=== PATIENT | male | born 1950 | race African-American/Black ===

== ENCOUNTER → 2018-02-09 | Emergency (ER) | payer OTHER ==
[~2018-02-09] VITALS: Ht 175.3 cm; Wt 90.7 kg
[~2018-02-09] MED LIST: DILTIAZEM ER90 MG PO; HYDROCHLOROTHIA25 MG PO; LIPITOR20 MG PO
== END | disposition home or self-care (01) ==
LOC: ER 10:59 → CPU-OBS 11:23
DX: R07.89 Other chest pain (principal); B34.9 Viral infection, unspecified
CPT/HCPCS: 36415; 71046; 93005; 96365; G0378; G0379; J1885

== ENCOUNTER 2018-08-22 09:30 | Outpatient (CLI) | payer OTHER ==
[~2018-08-22] VITALS: Ht 175.3 cm; Wt 91.2 kg
== END 2018-08-22 09:50 | disposition home or self-care (01) ==
LOC: OFIC 805 09:30
DX: R13.19 Other dysphagia (principal); K21.0 Gastro-esophageal reflux disease with esophagitis

== ENCOUNTER 2018-10-27 06:54 | Emergency (ER) | payer OTHER ==
[~2018-10-27] VITALS: Ht 175.3 cm; Wt 92.5 kg
== END 2018-10-27 11:28 | disposition home or self-care (01) ==
LOC: ER 06:54
DX: M79.672 Pain in left foot (principal); S92.512S Displaced fracture of proximal phalanx of left lesser toe(s), sequela; W22.8XXS Striking against or struck by other objects, sequela

== ENCOUNTER 2021-10-06 10:17 | Outpatient (CLI) | payer OTHER | END 2021-10-06 10:20 | disposition home or self-care (01) | LOC: RX STUDY 10:17 | DX: R13.19 Other dysphagia (principal); R13.12 Dysphagia, oropharyngeal phase ==

== ENCOUNTER 2022-05-08 05:13 | Emergency (ER) | payer OTHER ==
[~2022-05-08] VITALS: Ht 175.3 cm; Wt 94.3 kg
[2022-05-08] MEDS ORDERED: TOPROL XL50 M1 PO (05:36)
[2022-05-08] MEDS ORDERED: GLUMETZA500 MG PO (05:37)
== END 2022-05-08 08:26 ==
LOC: ER 05:13
DX: U07.1 COVID-19 (principal); E11.9 Type 2 diabetes mellitus without complications; Z79.84 Long term (current) use of oral hypoglycemic drugs; I10 Essential (primary) hypertension

== ENCOUNTER 2024-05-13 12:48 | Inpatient (IN) | payer OTHER ==
[~2024-05-13] VITALS: Ht 175.3 cm; Wt 89.8 kg
[~2024-05-13 12:48] MED LIST changes: +GLUMETZA500 MG PO; +TOPROL XL50 M1 PO
[2024-05-13] MEDS ORDERED: COZAAR50 MG PO (13:31)
[2024-05-13] MEDS ORDERED: CRESTOR40 MG PO (13:31)
--- NOTE | 2024-05-13 13:52 | NUR ---
PACIENTE ALERTA Y ORIENTADO X3. PACIENTE REFIER PALPITACIONES DESDE EL EFREM DE ROBINA. SE ESTIMAN SIGNOS VITALES Y SE UBICA. SE REALIZA EKG Y SE PRESENTA A MD DE MALINAO DR. JUAN. SE UBICA A PACIENTE EN UNIDAD DE CRITICO RYAN ORDEN MEDICA Y SE CONECTA A MONITOR CARDIACO Y OXIMETRIA CONTINUA.
[2024-05-13] MEDS ORDERED: 0.9 % SODIUM CHLORIDE 1,000 ML IV SCH ×2 (14:00→18:15)
[2024-05-13] MEDS ORDERED: DILTIAZEM HCL 125 MG in 0.9 % SODIUM CHLORIDE 125 ML IV SCH (14:00)
[2024-05-13 14:10] LABS: HEMOGLOBIN 14.7 g/dL (13-16.00); MEAN CELL VOLUME 90.2 fL (80.0-100.00); MEAN CORPUSCULAR HGB CONC 33.3 g/dl (32.0-36.0); PLATELET COUNT 273 K/uL (150-450); RED BLOOD COUNT 4.88 M/uL (4.00-6.00); RED CELL DISTRIBUTION WIDTH 14.7 % (11.5-14.5)
[2024-05-13] MEDS ORDERED: ENOXAPARIN SODIUM 60 MG/0.6 ML SYRINGE SUBCUTANEO ONE (14:15)
[2024-05-13] MEDS ORDERED: DILTIAZEM HCL 25 MG/5 ML VIAL IV ONE (14:15)
--- NOTE | 2024-05-13 14:28 | NUR ---
SE RECIBE PTE ALERTA Y ORIENTADO X3. SE UBICA EN UNIDAD DE CRITICO CAMA #3. SE CONECTA A MONITOR CARDIACO Y OXIMETRIA DE PULSO CONTINUA. HANH RM CANALIZA X2 A PTE EN BRAZO [place], ANGIO #20 Y ANGIO #18 Y CRUZITO MUESTRAS DE LAB BAJO MEDIDAS ASEPTICAS. SE COLOCA .9NSS A 140MLS/HR Y SE COLOCA DRIP DE CARDIZEM 125MG/100ML A 5MLS/HR. SE MANTIENE EN OBSERVACION POR CAMBIOS
[2024-05-13 15:00] LABS: INR 1.04; PARTIAL THROMBOPLASTIN TIME 31.3 SECONDS (22.0-34.0); PROTHROMBIN TIME 10.9 SECONDS (9.0-11.5)
[2024-05-13 15:01] LABS: ALBUMIN 3.9 gm/dL (3.4-5.0); BILIRUBIN TOTAL 0.52 mg/dL (0.3-1.2); CREATININE SERUM 1.3 mg/dL (0.70-1.30); GFR 54.26; GLOBULINA 3.6 G/DL (2.4-3.5); POTASSIUM 3.43 mEq/L (3.5-5.1); TOTAL PROTEIN 7.5 gm/dL (6.4-8.2); TSH 1.92 uIU/mL (0.358-3.74)
[2024-05-13 15:15] LABS: PH,URINE 5.5 (5.0-8.0); URINE APPEARANCE Cloudy; URINE BILIRRUBIN Negative (NEGATIVE); URINE BLOOD Negative; URINE COLOR Yellow; URINE GLUCOSE Negative (NEGATIVE); URINE LEUKOCYTE Negative; URINE NITRATE Negative; URINE PROTEIN Trace (NEGATIVE)
[2024-05-13 15:19] LABS: URINE BACTERIA 22.6 uL (0.0-1933); URINE EPITHELIAL CELLS 11.4 uL (0.0-38.8); URINE WBC 6.4 uL (0.0-23.2)
[2024-05-13 16:50] LABS: URINE CRYSTALS MANY /HPF
[2024-05-13] MEDS ORDERED: DEXTROSE 50 % IN WATER 0.5 G/ML DISP.SYRIN IV PRN (18:15)
[2024-05-13] MEDS ORDERED: INSULIN LISPRO 1,000 UNIT/10 ML UNITS SUBCUTANEO PRN (18:15)
[2024-05-13] MEDS ORDERED: ONDANSETRON HCL 4 MG in 0.9 % SODIUM CHLORIDE 50 ML IV PRN (18:30)
[2024-05-14] MEDS ORDERED: LOSARTAN POTASSIUM 25 MG TABLET PO SCH (12:00)
[2024-05-14] MEDS ORDERED: METOPROLOL TARTRATE 25 MG TABLET PO SCH (17:00)
[2024-05-14] MEDS ORDERED: APIXABAN 5 MG TABLET PO SCH (21:00)
[2024-05-15] MEDS ORDERED: ATORVASTATIN CALCIUM 40 MG TABLET PO SCH (17:00)
[2024-05-16 05:33] LABS: CALCIUM 8.7 mg/dL (8.5-10.1); CREATININE SERUM 0.82 mg/dL (0.70-1.30); GFR 92.35; POTASSIUM 4.43 mEq/L (3.5-5.1)
[2024-05-16] MEDS ORDERED: ELIQUIS5 MG PO (09:31)
[2024-05-16] MEDS ORDERED: COZAAR50 MG PO (09:31)
[2024-05-16] MEDS ORDERED: CRESTOR40 MG PO (09:32)
[2024-05-16] MEDS ORDERED: METOPROLOL SUC100 MG PO (09:34)
[2024-05-16] MEDS ORDERED: METOPROLOL SUCCINATE 100 MG TAB.SR.24H PO SCH (12:00)
== END 2024-05-16 12:47 | disposition home or self-care (01) | DRG 282 ==
LOC: ER 12:49 → SEC-K 18:16 → MEDI 18:16
PROVIDERS: General Practice; ADMIT Internal Medicine; ATTEND Internal Medicine
PROC: B24BZZZ Ultrasonography of Heart with Aorta (ICD-10-PCS; principal; 2024-05-13)
PROC: 4A12X4Z Monitoring of Cardiac Electrical Activity, External Approach (ICD-10-PCS; 2024-05-14)
DX: I48.20 Chronic atrial fibrillation, unspecified (principal); I21.4 Non-ST elevation (NSTEMI) myocardial infarction; I11.9 Hypertensive heart disease without heart failure; E87.6 Hypokalemia; I13.10 Hypertensive heart and chronic kidney disease without heart failure, with stage 1 through stage 4 chronic kidney disease, or unspecified chronic kidney disease; E11.22 Type 2 diabetes mellitus with diabetic chronic kidney disease; N18.2 Chronic kidney disease, stage 2 (mild); Z79.4 Long term (current) use of insulin

== ENCOUNTER 2024-06-04 19:20 | Emergency (ER) | payer OTHER ==
[~2024-06-04] VITALS: Ht 175.3 cm; Wt 88.9 kg
[~2024-06-04 19:20] MED LIST changes: +COZAAR50 MG PO; +CRESTOR40 MG PO; +ELIQUIS5 MG PO; +METOPROLOL SUC100 MG PO
[2024-06-04] MEDS ORDERED: GLUMETZA1000 MG (19:32)
[2024-06-04] MEDS ORDERED: SERTRALINE HCL25 MG PO (19:32)
[2024-06-04 20:40] LABS: HEMATOCRIT 38.5 % (39.0-48.0); HEMOGLOBIN 13.2 g/dL (13-16.00); MEAN CELL VOLUME 90.2 fL (80.0-100.00); MEAN CORPUSCULAR HEMOGLOBIN 30.9 pg (27.00-32.0); MEAN CORPUSCULAR HGB CONC 34.3 g/dl (32.0-36.0); PLATELET COUNT 167 K/uL (150-450); RED BLOOD COUNT 4.26 M/uL (4.00-6.00); RED CELL DISTRIBUTION WIDTH 14.4 % (11.5-14.5)
[2024-06-04 20:53] LABS: INR 1.08; PROTHROMBIN TIME 11.3 SECONDS (9.0-11.5)
[2024-06-04 20:59] LABS: CALCIUM 8.8 mg/dL (8.5-10.1); CREATININE SERUM 1.09 mg/dL (0.70-1.30); GFR 66.31; POTASSIUM 3.75 mEq/L (3.5-5.1)
== END 2024-06-05 00:09 | disposition home or self-care (01) ==
LOC: ER 19:21
PROVIDERS: Emergency Medicine
DX: R07.9 Chest pain, unspecified (principal); I10 Essential (primary) hypertension; E03.8 Other specified hypothyroidism; E11.9 Type 2 diabetes mellitus without complications; Z79.84 Long term (current) use of oral hypoglycemic drugs

== ENCOUNTER 2024-09-27 01:32 | Emergency (ER) | payer OTHER ==
[~2024-09-27] VITALS: Ht 175.3 cm; Wt 90.7 kg
[~2024-09-27 01:32] MED LIST changes: +GLUMETZA1000 MG; +SERTRALINE HCL25 MG PO
[2024-09-27 01:55] VITALS: BP 165/95; O2SAT 97
[2024-09-27] MEDS ORDERED: KETOROLAC TROMETHAMINE 30 MG VIAL IV STA (03:41)
[2024-09-27] MEDS ORDERED: SODIUM CHLORIDE 0.45 % 1,000 ML IV ONE (03:45)
[2024-09-27 04:17] LABS: HEMATOCRIT 40.3 % (39.0-48.0); HEMOGLOBIN 13.7 g/dL (13-16.00); MEAN CORPUSCULAR HEMOGLOBIN 30.2 pg (27.00-32.0); PLATELET COUNT 179 K/uL (150-450); RED BLOOD COUNT 4.53 M/uL (4.00-6.00)
[2024-09-27 04:40] LABS: BILIRUBIN TOTAL 0.51 mg/dL (0.3-1.2); CALCIUM 9.8 mg/dL (8.5-10.1); CREATININE SERUM 0.95 mg/dL (0.70-1.30); GFR 77.71; GLOBULINA 3.6 G/DL (2.4-3.5); POTASSIUM 4.38 mEq/L (3.5-5.1); TOTAL PROTEIN 7.6 gm/dL (6.4-8.2)
[2024-09-27 04:43] LABS: INR 1.04; PARTIAL THROMBOPLASTIN TIME 30.8 SECONDS (22.0-34.0); PROTHROMBIN TIME 11.3 SECONDS (9.0-11.5)
[2024-09-27 05:06] LABS: URINE APPEARANCE Clear; URINE BILIRRUBIN Negative (NEGATIVE); URINE BLOOD Negative; URINE COLOR Yellow; URINE GLUCOSE Negative (NEGATIVE); URINE KETONE Trace (NEGATIVE); URINE LEUKOCYTE Negative; URINE NITRATE Negative; URINE PROTEIN Negative (NEGATIVE)
[2024-09-27 05:07] LABS: URINE RBC 12.2 uL (0.0-20.8)
[2024-09-27 05:10] LABS: URINE BACTERIA 1.2 uL (0.0-1933); URINE EPITHELIAL CELLS 0.3 uL (0.0-38.8); URINE WBC 0.9 uL (0.0-23.2)
[2024-09-27] MEDS ORDERED: MEPERIDINE HCL/PF 50 MG/ML VIAL IM STA (06:25)
[2024-09-27] MEDS ORDERED: ORPHENADRINE CITRATE 30 MG/ML AMPUL IM STA (09:16)
[2024-09-27] MEDS ORDERED: MAGNESIUM SULFATE IN WATER 0.04 GM/ML IV.SOLN IV STA (09:41)
[2024-09-27] MEDS ORDERED: LACTULOSE 10 G/15 ML ML PO STA (09:41)
[2024-09-27] MEDS ORDERED: MAGNESIUM HYDROXIDE 30 ML BLIST.PACK PO ONE (10:00)
== END 2024-09-27 09:48 | disposition home or self-care (01) ==
LOC: ER 01:34
PROVIDERS: General Practice
DX: R10.9 Unspecified abdominal pain (principal); Z85.89 Personal history of malignant neoplasm of other organs and systems; E11.9 Type 2 diabetes mellitus without complications; Z79.84 Long term (current) use of oral hypoglycemic drugs
CPT/HCPCS: 36415; 74177; 74240; 96365; 96372; 99284; J1885; J2360; J3475; Q9965

== ENCOUNTER 2025-02-05 08:59 | Emergency (ER) | payer OTHER ==
[~2025-02-05] VITALS: Ht 175.3 cm; Wt 92.5 kg
[2025-02-05] MEDS ORDERED: CEFTRIAXONE SODIUM 1,000 MG VIAL IM ONE (10:00)
[2025-02-05] MEDS ORDERED: KETOROLAC TROMETHAMINE 60 MG VIAL IM ONE ×2 (10:00→10:04)
[2025-02-05] MEDS ORDERED: CEFTRIAXONE SODIUM 1,000 MG VIAL ONE (10:04)
== END 2025-02-05 10:44 | disposition home or self-care (01) ==
LOC: ER 08:59
DX: R35.0 Frequency of micturition (principal); I10 Essential (primary) hypertension; E11.9 Type 2 diabetes mellitus without complications; Z79.84 Long term (current) use of oral hypoglycemic drugs
CPT/HCPCS: 96372; 99282; J0696; J1885